=== PATIENT | female | born 1990 | race Caucasian/White ===

== ENCOUNTER 2020-11-15 21:51 | Emergency (ER) | payer OTHER ==
--- NOTE | 2020-11-15 23:29 | EDM.PDOC ---
ED HPI GENERAL MEDICAL PROBLEM - General Chief Complaint: Abdominal Pain Stated Complaint: PAIN RIGHT SIDE/GALBLADDER Time Seen by Provider: 11/15/20 23:00 Source of Information: Reports: Patient History Limitations: Reports: No Limitations - History of Present Illness INITIAL COMMENTS - FREE TEXT/NARRATIVE: 30-year-old female who had her gallbladder removed 4 months ago, has had some intermittent right upper quadrant pain since that time. No fevers or chills. Today was very painful, she felt nauseous and started searching for cause online and thought maybe she still has stones. She is feeling better now but wants to be checked. No fevers or chills, no diarrhea. She looks fairly comfortable at this time. Onset: Other (After her gallbladder surgery she has had waxing and waning symptoms for 3 months) Duration: Waxing/Waning Location: Reports: Abdomen (Mostly right upper quadrant) Quality: Reports: Sharp, Stabbing (It gets stabbing when bad, otherwise it is a pressure sensation) Associated Symptoms: Reports: Nausea/Vomiting Right Abdominal Pain Score (Numeric/FACES): 6 - Related Data Allergies Allergy/AdvReac Type Severity Reaction Status Date / Time No Known Allergies Allergy Verified 11/15/20 22:29 Home Meds: Home Meds Citalopram [Citalopram HBr] 1 tab PO DAILY 11/15/20 [History] levETIRAcetam [Keppra] 1 tab PO BID 11/15/20 [History] Past Medical History Gastrointestinal History: Reports: Cholelithiasis CLINICAL TRIAL HEAD History: Reports: Psychiatric History: Reports: Depression - Infectious Disease History Infectious Disease History: Reports: Chicken Pox - Past Surgical History GI Surgical History: Reports: Cholecystectomy Social & Family History - Family History Family Medical History: No Pertinent Family History - Tobacco Use Tobacco Use Status *Q: Current Every Day Tobacco User Years of Tobacco use: 5 Packs/Tins Daily: 0.2 - Caffeine Use Caffeine Use: Reports: None - Recreational Drug Use Recreational Drug Use: No ED ROS GENERAL - Review of Systems Review Of Systems: See Below Constitutional: Denies: Fever, Chills HEENT: Reports: No Symptoms Respiratory: Reports: No Symptoms GI/Abdominal: Reports: Abdominal Pain, Nausea. Denies: Vomiting : Reports: No Symptoms Skin: Reports: No Symptoms Neurological: Reports: No Symptoms Psychiatric: Reports: No Symptoms ED EXAM, GI/ABD - Physical Exam Exam: See Below Exam Limited By: No Limitations General Appearance: Alert, No Apparent Distress Eyes: Bilateral: Normal Appearance (No jaundice, good hydration) Respiratory/Chest: No Respiratory Distress, Lungs Clear Cardiovascular: Regular Rate, Rhythm GI/Abdominal Exam: Tender (Some tenderness to palpation across the upper abdomen but not significant, no guarding or rebound) Extremities: Other (Very high BMI, significant obesity of the extremities makes it difficult to assess for edema) Neurological: Alert, Oriented Psychiatric: Normal Affect, Normal Mood Skin Exam: Warm, Dry Course - Vital Signs Last Recorded V/S: Last Vital Signs Temp 96.5 F L 11/15/20 22:31 Pulse 86 11/15/20 22:31 Resp 16 11/15/20 22:31 BP 137/79 11/15/20 22:31 Pulse Ox 96 11/15/20 22:31 - Orders/Labs/Meds Labs: Laboratory Tests 11/15/20 11/15/20 Range/Units 23:15 23:15 WBC 10.7 (4.5-11.0) K/uL RBC 5.07 (3.30-5.50) M/uL Hgb 12.0 (12.0-15.0) g/dL Hct 38.7 (36.0-48.0) % MCV 76 L (80-98) fL MCH 24 L (27-31) pg MCHC 31 L (32-36) % Plt Count 431 H (150-400) K/uL Neut % (Auto) 55.9 (36-66) % Lymph % (Auto) 35.4 (24-44) % [place] % (Auto) 4.5 (2-6) % Eos % (Auto) 3.8 (2-4) % Baso % (Auto) 0.4 (0-1) % Sodium 139 L (140-148) mmol/L Potassium 4.0 (3.6-5.2) mmol/L Chloride 104 (100-108) mmol/L Carbon Dioxide 26 (21-32) mmol/L Anion Gap 13.0 (5.0-14.0) mmol/L BUN 13 (7-18) mg/dL Creatinine 0.8 (0.6-1.0) mg/dL Est Cr Clr Drug Dosing 89.60 mL/min Estimated GFR (MDRD) > 60 (>60) Glucose 96 (74-106) mg/dL Calcium 8.5 (8.5-10.1) mg/dL Total Bilirubin 0.3 (0.2-1.0) mg/dL AST 16 (15-37) U/L ALT 25 (12-78) U/L Alkaline Phosphatase 88 (46-116) U/L Total Protein 7.1 (6.4-8.2) g/dL Albumin 3.2 L (3.4-5.0) g/dL Globulin 3.9 H (2.3-3.5) g/dL Albumin/Globulin Ratio 0.8 L (1.2-2.2) Lipase 89 (73-393) U/L - Re-Assessments/Exams Free Text/Narrative Re-Assessment/Exam: 11/15/20 23:28 CBC CMP lipase were obtained. Explained to the patient that if these are normal then she can follow-up with her surgeon to discuss her recurring symptoms. If abnormal will consider a CT scan. 11/15/20 23:55 All the patient's labs are normal, I gave her copies of the labs and asked her to follow-up with her surgeon next week. Departure - Departure Time of Disposition: 00:09 Disposition: Home, Self-Care 01 Clinical Impression: Abdominal pain Qualifiers: Abdominal location: upper abdomen, unspecified Qualified Code(s): R10.10 - Upper abdominal pain, unspecified - Discharge Information Instructions: Abdominal Pain, Adult, [id number] Referrals: PCP,None [Primary Care Provider] - Forms: ED Department Discharge Care Plan Goals: Start a regular dose of Prilosec, 40 mg, every day and call your surgeon next week to recheck to discuss your recurring symptoms. No recheck as needed if the Prilosec is helping her pain. Sepsis Event Note (ED) - Evaluation Sepsis Screening Result: No Definite Risk - Focused Exam Vital Signs: Vital Signs Temp Pulse Resp BP Pulse Ox 11/15/20 22:31 96.5 F L 86 16 137/79 96 11/15/20 22:27 96.5 F L 86 16 137/79 96
== END 2020-11-16 00:08 | disposition home or self-care (01) ==
LOC: JP.ED 21:51
DX: R10.11 Right upper quadrant pain (principal); Z72.0 Tobacco use; Z90.49 Acquired absence of other specified parts of digestive tract
CPT/HCPCS: 36415; 80053; 83690; 85025; 99284